=== PATIENT | female | born 1990 | race Caucasian/White ===

== ENCOUNTER 2017-01-25 02:35 | Emergency (ER) | payer SELFPAY ==
[2017-01-25] MEDS ORDERED: IOPAMIDOL 370 (76%) 100 ML VIAL IV ONE (02:36)
[2017-01-25] MEDS ORDERED: ALBUTEROL/IPRATROPIUM 2.5/0.5 MG 3 ML/EACH DOSE ONE (03:26)
[2017-01-25 03:28] LABS: ABSOLUTE NEUTROPHIL COUNT 5.7 K/mm3 (1.8-7.7); BASO % 0.1 % (0.2-1.0); EOS % 0.3 % (0.9-2.9); HEMATOCRIT 41.5 % (37.0-47.0); HEMOGLOBIN 14.1 gm/l (12.0-16.0); IMM NEUT% 0.3 % (0-1); LYMPH # 1.2 (1.0-4.8); LYMPH % 15.2 % (15-45); MEAN CELL VOLUME 90.2 fl (81.0-99.0); MEAN CORPUSCULAR HEMOGLOBIN 30.7 pg (27.0-31.0); MEAN PLATELET VOLUME 10.4 fl (7.4-10.4); MONO % 12.5 % (4-12); NEUT % 71.6 % (43-75); PLATELET COUNT 263 K/mm3 (130-400); RED CELL DISTRIBUTION WIDTH 12.3 % (11.5-14.5)
--- NOTE | 2017-01-25 07:36 | RAD ---
EXAMINATION:CHEST - 2 VIEWS CLINICAL INDICATION: Hemoptysis. COMPARISON:none FINDINGS: The cardiomediastinal silhouette is within normal limits. There is no adenopathy identified. There is no pleural effusion. The lungs are clear. The osseous structures are unremarkable for age. IMPRESSION: Negative PA and lateral views of the chest. No acute cardiopulmonary process is identified.
--- NOTE | 2017-01-25 07:40 | CT ---
EXAMINATION: CT angiography of the thorax.CTA CHEST FOR PE INDICATION: Hemoptysis. COMPARISON: Chest radiograph dated 01/25/2017. TECHNIQUE: Helical scan mode CT of the Thorax after uneventful intravenous contrast administration of 80 ml of Isovue-370. Imaging device: [employer] multidetector CT scan. Helically acquired stacked images were reviewed in the axial, sagittal and coronal planes. Additional 3-D postprocessing was performed and reconstructed images were acquired at the 3D [place] workstation and reviewed as well. FINDINGS: The bolus is of good quality for diagnosis of pulmonary embolism. There are no pulmonary arterial filling defects. No vascular malformations are identified. The lung parenchyma: There is mild basilar atelectasis. No consolidation is identified. There is no pneumothorax or infiltrate. No fibrotic change or honeycombing is seen. Pleural effusion: None: Mediastinum: There are shotty mediastinal lymph nodes. Calcified lymph node is noted in the azygos distribution. No disseminated adenopathy is currently appreciated. Osseus structures: No gross lytic or blastic lesions. Soft tissues: within normal limits Limited evaluation of the abdomen on this arterial phase injection reveals: no gross abnormalities. IMPRESSION: 1. Negative for pulmonary embolism. 2. Evidence of prior granulomatous infection. 3. Nonspecific shotty mediastinal lymph nodes. No disseminated adenopathy is currently identified. Findings were communicated by [facility] to the emergency department at: 0 5:11 AM 01/25/2017
== END 2017-01-25 03:14 | disposition home or self-care (01) ==
LOC: ED 02:35
DX: J40 Bronchitis, not specified as acute or chronic (principal); R04.2 Hemoptysis; J06.9 Acute upper respiratory infection, unspecified; F17.200 Nicotine dependence, unspecified, uncomplicated
CPT/HCPCS: 85379; 85025; 80048; 71020; 71275; 94640; 94664; 99406 ×2; 99283 ×2; 36415; Q9967